=== PATIENT | male | born 1990 | race Caucasian/White ===

== ENCOUNTER → 2017-06-19 | Outpatient (CLI) | payer BC ==
[~2017-06-19] MED LIST: CEP500 PO; MAGIC
--- NOTE | 2017-06-19 15:34 | RADIOLOGY IMAGING REPORT ---
FACILITY: [facility] - [place] PATIENT NAME: Ish Mohan : 1990 MR: [id number] V: [id number] EXAM DATE: ORDERING PHYSICIAN: TAN HINOJOSA TECHNOLOGIST: Location: [facility] - [place], [place] Patient: Ish Mohan : 1990 Visit/Account:[id number] Date of Sevice: 06/19/2017 Exam type: LUMBAR SPINE 2 OR 3 VIEW History: Back pain Comparison: None. Findings: There are five nonrib-bearing lumbar-type vertebral bodies present. There is no evidence of acute fr actures or subluxations. The disc spaces appear well-preserved. IMPRESSION: 1. Unremarkable two views of the lumbar spine. If patient's pain continues MR may be helpful Report Dictated By: Clare Stevens MD at 06/19/2017 3:29 PM Report E-Signed By: Clare Stevens MD at 06/19/2017 3:30 PM WSN:[email or web address]
--- NOTE | 2017-06-19 15:37 | RADIOLOGY IMAGING REPORT ---
FACILITY: [facility] PATIENT NAME: Ish Mohan : 1990 MR: [id number] V: [id number] EXAM DATE: ORDERING PHYSICIAN: TAN HINOJOSA TECHNOLOGIST: Location: [facility] - [place] Patient: Ish Mohan : 1990 Visit/Account:[id number] Date of Sevice: 06/19/2017 Exam type: THORACIC SPINE 3 VIEWS History: Back pain Comparison: None. Findings: There is no evidence of acute fractures or subluxations within the thoracic spine. There is a minima l S-shaped scoliosis of the thoracic spine. The disc spaces appear well-preserved. IMPRESSION: 1. Minimal S-shaped scoliosis of the thoracic spine Report Dictated By: Clare Stevens MD at 06/19/2017 3:30 PM Report E-Signed By: Clare Stevens MD at 06/19/2017 3:32 PM WSN:[email or web address]
== END ==
LOC: RAD 14:39
PROVIDERS: ATTEND Physician Assistant Medical
DX: M41.9 Scoliosis, unspecified (principal)
CPT/HCPCS: 72072; 72100

== ENCOUNTER 2017-07-08 13:45 | Outpatient (RCR) | payer BC ==
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
--- NOTE | 2017-08-05 08:32 | PT PLAN OF CARE ---
Patient is being seen: 3 visits Therapist: Chuyita Spencer PT Medical Diagnosis: Lumbar and Thoracic pain Treatment Diagnosis: Same Date of Onset: 03/25/08 Date of Initial Evaluation: 06/18/17 Date patient was last seen: 07/08/17 Number of treatments: 3 Number of cancellations/No shows: 0 INTERVENTIONS: Manual Therapy Range of Motion Spinal Stabilization Stretching GOALS: all not met: 4 weeks: LBP 5/10 at most the the end of the day, full thoracic and lumbar AROM , tolerates sitting 4 hours with lumbar and thoracic pain 3-4/10. PATIENT'S GOAL: Find out what's causing back pain and deal with it so he can sit and move easily. both not met Patient Compliance: Miles Prognosis: Good Reasons for discontinuing therapy: Ish stopped attending PT due to his financial needs. He relates that he's doing HEP on his own, including stretching and core strengthening, but still has LBP. Per his request, I'll DC PT. I informed him that I would be happy to work with him if he'd like to pursue PT in the future. Thank you. BRIGHT
== END 2017-07-08 18:00 | disposition home or self-care (01) ==
LOC: PT 13:45
PROVIDERS: ATTEND Physician Assistant Medical
DX: M54.5 Low back pain (principal); M54.6 Pain in thoracic spine
CPT/HCPCS: 97162